=== PATIENT | male | born 1935 | race Caucasian/White ===

== ENCOUNTER 2017-10-09 10:43 | Day surgery (SDC) | payer MEDICARE, OTHER ==
[~2017-10-09 10:43] MED LIST: Cefuroxime 10 MG/ML SYRINGE EYERT SCH; Lidocaine 1% PF 2 ML SDV INJECT SCH; Pilocarpine 4% Ophth Soln 15 ML Bot EYERT SCH
[2017-10-09] MEDS: Polymyxin B/Trimethoprim 10 ML Bottle EYERT SCH ×3 (12:44→14:10)
[2017-10-09] MEDS: Brimonidine 0.2% Ophth Soln 5 ML Bottle EYERT SCH ×3 (12:49→14:10)
[2017-10-09] MEDS: Phenylephrine 2.5% Ophth Soln 2 ML Bot EYERT SCH ×5 (12:54→13:53)
[2017-10-09] MEDS: Tetracaine HCl/PF 0.5% 4 ML Bottle EYERT SCH ×2 (13:43→13:59)
--- NOTE | 2017-10-09 13:50 | PCM.PREANE ---
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) Other: Reports: None, Easy Bruising - Physical Assessment NPO Status Date: 10/08/17 NPO Status Time: 23:00 Pulse: 61 O2 Sat by Pulse Oximetry: 96 Respiratory Rate: 16 Blood Pressure: 147/72 Temperature: 36.4 C Vital Signs: Last Vital Signs Temp 36.4 C 10/09/17 12:30 Pulse 61 10/09/17 12:30 Resp 16 10/09/17 12:30 BP 147/72 H 10/09/17 12:30 Pulse Ox 96 10/09/17 12:30 Height: 1.68 m Weight: 58.06 kg ASA Class: 3 Mental Status: Alert & Oriented x3 Airway Class: Mallampati = 2 Dentition: Reports: Dentures (upper), Missing Tooth/Teeth Thyro-Mental Finger Breadths: 3 Mouth Opening Finger Breadths: 3 ROM/Head Extension: Full Lungs: Clear to Auscultation, Normal Respiratory Effort Cardiovascular: Regular Rate, Regular Rhythm, No Murmurs - Allergies Allergies/Adverse Reactions: Allergies Allergy/AdvReac Type Severity Reaction Status Date / Time No Known Allergies Allergy Verified 10/08/17 14:15 - Anesthesia Plan Pre-Op Medication Ordered: None - Acknowledgements Anesthesia Type Planned: MAC Pt an Appropriate Candidate for the Planned Anesthesia: Yes Alternatives and Risks of Anesthesia Discussed w Pt/Guardian: Yes Pt/Guardian Understands and Agrees with Anesthesia Plan: Yes PreAnesthesia Questionnaire - HOME MEDS Home Medications: Home Meds Hydrochlorothiazide [Microzide] 12.5 mg PO DAILY 10/08/17 [History] LORazepam [LORazepam] 0.5 mg PO Q8H PRN 10/08/17 [History] Losartan [Cozaar] 25 mg PO DAILY 10/08/17 [History] Multivitamin [Zoo Chews] 1 tab PO DAILY 10/08/17 [History] Sertraline [Zoloft] 50 mg PO DAILY 10/08/17 [History] - CURRENT (IN HOUSE) MEDS Current Meds: Current Medications Brimonidine Tartrate (Alphagan 0.2% Ophth Soln) 0 ml EYERT ASDIRECTED GEGE Stop: 10/09/17 18:00 Last Admin: 10/09/17 13:28 Dose: 1 drop Cefuroxime Sodium (Zinacef) 0 mg EYERT ASDIRECTED GEGE Stop: 10/09/17 18:00 Lidocaine HCl (Xylocaine-Mpf 1%) 10 ml INJECT ASDIRECTED GEGE Stop: 10/09/17 18:00 Phenylephrine HCl (Kt-Synephrine 2.5% Ophth Soln) 0 ml EYERT ASDIRECTED GEGE Stop: 10/09/17 18:00 Last Admin: 10/09/17 13:32 Dose: 1 drop Pilocarpine HCl (Pilocar 4% Ophth Soln) 0 ml EYERT ASDIRECTED GEGE Stop: 10/09/17 18:00 Polymyxin/Trimethoprim Sulfate (Polytrim Ophth Soln) 0 ml EYERT ASDIRECTED GEGE Stop: 10/09/17 18:00 Last Admin: 10/09/17 13:25 Dose: 1 drop Tetracaine HCl (Tetracaine 0.5% Steri-Unit Diane) 0 ml EYERT ASDIRECTED GEGE Stop: 10/09/17 18:00 Last Admin: 10/09/17 13:43 Dose: 1 drop Tropicamide (Mydriacyl 1% Ophth Soln) 0 ml EYERT ASDIRECTED GEGE Stop: 10/09/17 18:00 Last Admin: 10/09/17 13:37 Dose: 1 drop
--- NOTE | 2017-10-09 14:12 | PCM48HPAN ---
Post Anesthesia Note - EVALUATION WITHIN 48HRS OF ANESTHETIC Vital Signs in Normal Range: Yes Patient Participated in Evaluation: Yes Respiratory Function Stable: Yes Airway Patent: Yes Cardiovascular Function Stable: Yes Hydration Status Stable: Yes Pain Control Satisfactory: Yes Nausea and Vomiting Control Satisfactory: Yes Mental Status Recovered: Yes
== END 2017-10-09 14:20 | disposition home or self-care (01) ==
LOC: JD.SDS 10:43
PROVIDERS: ATTEND Ophthalmology
DX: H25.013 Cortical age-related cataract, bilateral (principal); H02.403 Unspecified ptosis of bilateral eyelids; H11.153 Pinguecula, bilateral; H43.21 Crystalline deposits in vitreous body, right eye; H34.232 Retinal artery branch occlusion, left eye; M19.90 Unspecified osteoarthritis, unspecified site; F32.9 Major depressive disorder, single episode, unspecified; I10 Essential (primary) hypertension; F17.210 Nicotine dependence, cigarettes, uncomplicated; K21.9 Gastro-esophageal reflux disease without esophagitis; Z79.82 Long term (current) use of aspirin; Z98.890 Other specified postprocedural states; Z79.899 Other long term (current) drug therapy
CPT/HCPCS: 66984; J0697; A9270-GY; C1780

== ENCOUNTER → 2017-10-30 | Day surgery (SDC) | payer MEDICARE, OTHER ==
[~2017-10-30] MED LIST changes: +Cefuroxime 10 MG/ML SYRINGE EYELF SCH; -Cefuroxime 10 MG/ML SYRINGE EYERT SCH; +Pilocarpine 4% Ophth Soln 15 ML Bot EYELF SCH; -Pilocarpine 4% Ophth Soln 15 ML Bot EYERT SCH
[2017-10-30] MEDS: Polymyxin B/Trimethoprim 10 ML Bottle EYELF SCH ×3 (07:45→09:51)
[2017-10-30] MEDS: Brimonidine 0.2% Ophth Soln 5 ML Bottle EYELF SCH ×3 (07:50→09:51)
[2017-10-30] MEDS: Phenylephrine 2.5% Ophth Soln 2 ML Bot EYELF SCH ×5 (07:55→09:37)
[2017-10-30] MEDS: Tetracaine HCl/PF 0.5% 4 ML Bottle EYELF SCH ×2 (09:27→09:45)
== END | disposition home or self-care (01) ==
LOC: JD.SDS 07:00
PROVIDERS: ATTEND Ophthalmology
DX: H25.812 Combined forms of age-related cataract, left eye (principal); H25.012 Cortical age-related cataract, left eye; H43.21 Crystalline deposits in vitreous body, right eye; H34.232 Retinal artery branch occlusion, left eye; H02.834 Dermatochalasis of left upper eyelid; H02.831 Dermatochalasis of right upper eyelid; H02.413 Mechanical ptosis of bilateral eyelids; G70.00 Myasthenia gravis without (acute) exacerbation; M19.90 Unspecified osteoarthritis, unspecified site; F32.9 Major depressive disorder, single episode, unspecified; I10 Essential (primary) hypertension; F17.210 Nicotine dependence, cigarettes, uncomplicated; Z79.82 Long term (current) use of aspirin; Z79.899 Other long term (current) drug therapy; Z98.41 Cataract extraction status, right eye; Z96.1 Presence of intraocular lens; Z98.890 Other specified postprocedural states
CPT/HCPCS: 66984; C1780; J0697; A9270-GY